=== PATIENT | male | born 1990 | race Caucasian/White ===

== ENCOUNTER 2025-02-20 10:54 | Outpatient (CLI) | payer BC, SELFPAY ==
--- NOTE | 2025-02-20 11:00 | CRLHL7_ITS ---
For Patients: As a result of the Century Cures Act, medical imaging exams and procedure reports are released immediately into your electronic medical record. You may view this report before your referring provider. If you have questions, please contact your health care provider. Indication: Lung cancer Technique: CT Chest/Abd/Pelvis W/86CC [id number] intravenous Please note that all CT scans at this facility use dose modulation, iterative reconstruction, and/or weight-based dosing when appropriate to reduce radiation dose to as low as reasonably achievable. Comparison: None Findings: In the chest, incidental residual thymic tissue noted in the anterior mediastinum. No thyroid nodule within the visualized thyroid. No axillary, hilar or mediastinal adenopathy. Postop changes right lobectomy. No infiltrate or edema. No effusion or pneumothorax. No suspicious pulmonary nodule. In the abdomen, there is no intrahepatic mass. Incidental fat deposition is present adjacent to the falciform ligament. Gallbladder is incompletely distended. No calcified gallstones or biliary obstruction. Normal spleen and pancreas. Adrenal glands and kidneys are normal. No retroperitoneal or mesenteric adenopathy. In the pelvis, the bladder is normal. Unremarkable prostate. No bowel obstruction, free air, free fluid or abscess. No pelvic or inguinal adenopathy. Normal appendix. Normal osseous structures. Impression: No evidence of metastatic disease. Please note that all CT scans at this facility use dose modulation, iterative reconstruction, and/or weight-based dosing when appropriate to reduce radiation dose to as low as reasonably achievable. Dictated by Juliano Alves MD @ 02/20/2025 3:53:28 PM (Electronically Signed)
== END 2025-02-20 10:55 | disposition home or self-care (01) ==
LOC: CT 10:55
PROVIDERS: PCP Family Medicine; Visit Provider Internal Medicine Hematology & Oncology
DX: C34.90 Malignant neoplasm of unspecified part of unspecified bronchus or lung (principal)
CPT/HCPCS: 71260; 74177; Q9967

== ENCOUNTER 2025-06-13 12:31 | Outpatient (CLI) | payer BC, SELFPAY ==
--- NOTE | 2025-06-13 13:00 | CRLHL7_ITS ---
For Patients: As a result of the Century Cures Act, medical imaging exams and procedure reports are released immediately into your electronic medical record. You may view this report before your referring provider. If you have questions, please contact your health care provider. Indication: Lung cancer Technique: CT Chest/Abd/Pelvis 85CC ISOVUE 370 intravenous contrast AND WATER PREP Please note that all CT scans at this facility use dose modulation, iterative reconstruction, and/or weight-based dosing when appropriate to reduce radiation dose to as low as reasonably achievable. Comparison: 02/20/2025 Findings: In the chest, stable postop changes to the right lung. Stable tiny perifissural nodule left lower lobe. No infiltrate or edema. No effusion or pneumothorax. No adenopathy. No fracture. In the abdomen/pelvis, the liver is within normal limits. Normal gallbladder, spleen, pancreas, adrenal glands and kidneys. No adenopathy. No bowel obstruction or free air. No excess pelvic free fluid or abscess. No pelvic mass. Bladder normal. No suspicious osseous lesion. Impression: Stable exam. No evidence of metastatic disease. Please note that all CT scans at this facility use dose modulation, iterative reconstruction, and/or weight-based dosing when appropriate to reduce radiation dose to as low as reasonably achievable. Dictated by Juliano Alves MD @ 06/13/2025 3:56:29 PM (Electronically Signed)
== END 2025-06-13 12:32 | disposition home or self-care (01) ==
LOC: CT 12:35
PROVIDERS: Visit Provider Internal Medicine Hematology & Oncology
DX: C34.90 Malignant neoplasm of unspecified part of unspecified bronchus or lung (principal)
CPT/HCPCS: 71260; 74177; Q9967

== ENCOUNTER 2025-06-20 11:00 | Outpatient (RCR) | payer BC, MEDICAID, SELFPAY ==
--- NOTE | 2024-12-13 09:20 | ONC.NURNOTE ---
Patient called to confirm appt on 12/27 at 11 am with a 10:30 am arrival.
--- NOTE | 2024-12-20 14:52 | ONC.NURNOTE ---
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
[2024-12-27 10:13] LABS: Hematocrit 38.6 % (37.0-53.0); Hemoglobin* 13.3 gm/dL (13.5-17.5); Immature Granulocytes Abs Auto 0.02 K/uL (0.00-0.30); Immature Granulocytes Pct Auto 0.4 %; Lymphocytes Absolute Auto 1.80 K/uL (0.90-2.90); Mean Corpuscular HGB Conc 35 gm/dL (32-36); Mean Corpuscular Hemoglobin 31 pg (26-34); Mean Corpuscular Volume 91 fL (80-100); RDW Coefficient of Variation % 12.7 % (11.5-15.5); Red Blood Count 4.26 m/uL (4.30-5.90); White Blood Count* 5.04 K/uL (4.50-11.00)
[2024-12-27 10:18] LABS: Slide Review Reflex No
[2024-12-27 10:30] LABS: Albumin* 4.7 g/dL (3.3-5.0); Chloride* 102 mmol/L (96-114); Potassium* 3.9 mmol/L (3.6-5.1); Sodium* 138 mmol/L (135-149)
[2024-12-27 10:32] LABS: Bilirubin Total* 0.9 mg/dL (0.1-1.5); Blood Urea Nitrogen* 12 mg/dL (5-24); Creatinine* 0.9 mg/dL (0.5-1.5); Estimated Glomerular Filt Rate 115 ml/min
[2024-12-27 10:33] LABS: Alanine Aminotransferase* 29 U/L (4-50); Alkaline Phosphatase* 54 U/L (40-150); Anion Gap 8 mEq/L (7-15); Aspartate Amino Transferase* 24 U/L (12-35); Calcium* 9.5 mg/dL (8.4-10.6); Carbon Dioxide* 28 mmol/L (20-32); Creatine Kinase* 99 U/L (54-186); Glucose* 90 mg/dL (60-115); Total Protein* 7.3 g/dL (6.0-8.3)
--- NOTE | 2024-12-27 15:13 | ONC.NURNOTE ---
Distress Screening = 7 fatigue, worry, sadness, loss of interest, finances, insurance SS consult to be placed
--- NOTE | 2024-12-27 15:15 | ONC.NURNOTE ---
transfer of care on alectinib folder given with information about medication, self care, after hours ph #, when to call clinic, managing fatigue and diet, safe handling patient had gained 20 # after thoracic surgery, and has lost 16 # intentionally, with plans to lose another 4# eating well, staying active questions addressed CHEY forms signed instructions for next steps reviewed- and written down diphenhydramine 25-50 mg QD at HS famotidine 10 mg BID chart picker the medrol dose amandeep and start today or tomorrow Yobani confirms understanding will follow up with Yobani at 1 week on his rash
--- NOTE | 2025-01-01 15:24 | ONC.NURNOTE ---
referral faxed to [facility] at [phone]
--- NOTE | 2025-01-02 09:29 | ONC.NURNOTE ---
Follow up call to Yobani regarding rash: Completed medrol dose pack yesterday taking Benadryl daily and pepci twice daily has noted no improvement in rash- Yobani states it appears to be more widespread Yobani asks if/when he can restart his alectinib? and next steps ?
--- NOTE | 2025-01-02 09:33 | ONC.NURNOTE ---
Referral for genetic counselor faxed to [facility] [place] with supporting documentation [phone] Yobani notified
--- NOTE | 2025-01-03 12:50 | ONC.NURNOTE ---
Addendum entered by Cheri Marvin RN 01/05/25 11:11: Punch biopsy completed at [facility] yesterday requested records to be faxed to Dr Jeffrey as available Original Note: Rash follow up:Reviewed current status with Dr Jeffrey and received the following orders Message left on Mems-ID -ok to restart alectinib as follows 2 tabs (2 X 150 mg) BID for 3-4 days 3 tabs BID for 3 days then after a week, resume full dose at 4 tabs BID although rash etiology is unknown- restarting alectinib may trigger a greater sensitivity and then worsening rash Referral placed for punch biopsy of rash- request for the next week-
--- NOTE | 2025-01-10 13:47 | ONC.NURNOTE ---
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
--- NOTE | 2025-01-25 11:42 | ONC.NURNOTE ---
Recommendation from Dr Jeffrey after speaking with infectious disease: Hold alectinib until antibiotic treatment is completed patient has follow up with Dr Jeffrey on Wednesday
--- NOTE | 2025-01-25 16:02 | ONC.NURNOTE ---
Yobani is traveling to [facility] in March for 2 plus months He will need an alectinib RX for January for 30 days Then he will need a 90 day supply for March, April, May #720- submitted to [facility] a PA for override of the 30 day supply will be needed [facility] will set up on covermymeds when 90 day RX is submitted this office will need to complete the PA
[2025-02-06 08:16] LABS: Hematocrit 41.8 % (37.0-53.0); Hemoglobin* 14.2 gm/dL (13.5-17.5); Immature Granulocytes Abs Auto 0.00 K/uL (0.00-0.30); Immature Granulocytes Pct Auto 0.0 %; Mean Corpuscular HGB Conc 34 gm/dL (32-36); Mean Corpuscular Hemoglobin 31 pg (26-34); Mean Corpuscular Volume 91 fL (80-100); RDW Coefficient of Variation % 11.4 % (11.5-15.5); Red Blood Count 4.60 m/uL (4.30-5.90); White Blood Count* 5.70 K/uL (4.50-11.00)
[2025-02-06 08:24] LABS: Lymphocytes Absolute Auto 3.20 K/uL (0.90-2.90)
[2025-02-06 08:25] LABS: Albumin* 4.7 g/dL (3.3-5.0); Chloride* 101 mmol/L (96-114); Slide Review Reflex No; Sodium* 137 mmol/L (135-149)
[2025-02-06 08:26] LABS: Potassium* 3.9 mmol/L (3.6-5.1)
[2025-02-06 08:28] LABS: Alanine Aminotransferase* 53 U/L (4-50); Alkaline Phosphatase* 52 U/L (40-150); Anion Gap 8 mEq/L (7-15); Aspartate Amino Transferase* 40 U/L (12-35); Bilirubin Total* 0.5 mg/dL (0.1-1.5); Blood Urea Nitrogen* 11 mg/dL (5-24); Calcium* 9.6 mg/dL (8.4-10.6); Carbon Dioxide* 28 mmol/L (20-32); Creatine Kinase* 77 U/L (54-186); Creatinine* 0.8 mg/dL (0.5-1.5); Est. Creatinine Clearance* 134.34; Estimated Glomerular Filt Rate 119 ml/min; Glucose* 90 mg/dL (60-115); Total Protein* 7.3 g/dL (6.0-8.3)
--- NOTE | 2025-02-06 09:02 | ONC.NURNOTE ---
Addendum entered by Ginny Jett RN 02/06/25 09:06: Also of note, pt will plan to re-start his oral chemo tonight. Original Note: Pt was present at [facility] this morning for labs. RN called pt later in the morning to check in regarding his oral chemo prescription. Because he will be traveling out of the country for several months, he had requested a 3 month supply of his drug. SOFIE Alonzochief clinical officer sent the script to his specialty pharmacy last week. Upon speaking with pt this morning, he shared that the pharmacy called about getting him his monthly supply per usual and he inquired about the 3 month supply. They confirmed that they received it but that it was processing. He agreed to be sent the one month supply for now but we discussed that follow up will be required for the 3 month supply. Yobani will call the pharmacy next week and RN will call to follow up. He plans to leave the country the 2nd or 3rd week of March.
--- NOTE | 2025-02-27 09:28 | ONC.NURNOTE ---
RX 90 day supply alensca resubmitted to [facility] by this inspector automatic typewriter previous 90 day supply sent [address] Jeffrey on 01/29/25 was dispensed as a 30 day supply on 02/05/25 so there are no further refills available to be sent to Yobani Bail Agent is speaking with [facility] once again requesting a travel override
--- NOTE | 2025-03-01 14:07 | ONC.NURNOTE ---
Message left on VM to call [facility]: -imaging results -status of 90 day supply [facility] -lab appt missed- need to reschedule -give printed lab orders to patient for lab draw in [facility] due April and May- (printed and in Navigator bin)
[2025-03-14 10:50] LABS: Albumin* 4.9 g/dL (3.3-5.0); Chloride* 99 mmol/L (96-114)
[2025-03-14 10:51] LABS: Hematocrit 43.1 % (37.0-53.0); Hemoglobin* 15.0 gm/dL (13.5-17.5); Immature Granulocytes Abs Auto 0.04 K/uL (0.00-0.30); Immature Granulocytes Pct Auto 0.7 %; Lymphocytes Absolute Auto 3.10 K/uL (0.90-2.90); Mean Corpuscular HGB Conc 35 gm/dL (32-36); Mean Corpuscular Hemoglobin 30 pg (26-34); Mean Corpuscular Volume 86 fL (80-100); Potassium* 3.9 mmol/L (3.6-5.1); RDW Coefficient of Variation % 11.3 % (11.5-15.5); Red Blood Count 5.00 m/uL (4.30-5.90); Sodium* 139 mmol/L (135-149); White Blood Count* 5.74 K/uL (4.50-11.00)
[2025-03-14 10:53] LABS: Alanine Aminotransferase* 42 U/L (4-50); Alkaline Phosphatase* 61 U/L (40-150); Anion Gap 9 mEq/L (7-15); Aspartate Amino Transferase* 39 U/L (12-35); Bilirubin Total* 0.8 mg/dL (0.1-1.5); Blood Urea Nitrogen* 13 mg/dL (5-24); Carbon Dioxide* 31 mmol/L (20-32); Creatinine* 1.0 mg/dL (0.5-1.5); Est. Creatinine Clearance* 107.47; Estimated Glomerular Filt Rate 101 ml/min
[2025-03-14 10:54] LABS: Calcium* 9.6 mg/dL (8.4-10.6); Creatine Kinase* 149 U/L (54-186); Glucose* 93 mg/dL (60-115); Total Protein* 7.7 g/dL (6.0-8.3)
[2025-03-14 11:10] LABS: Slide Review Reflex No
--- NOTE | 2025-03-14 15:03 | ONC.NURNOTE ---
[facility] has been slow to respond to filling Alecensa-RX continues to be in process regardless of expediting the process multiple lengthy calls to [facility] by this marketing copywriter and by the patient with insurance change- this marketing copywriter is looking to try a different specialty pharmacy all patients information faxed to [facility] today fax [phone] Yobani is aware of this plan
--- NOTE | 2025-04-20 11:58 | ONC.NURNOTE ---
Addendum entered by Cheri Marvin RN 04/23/25 10:24: KUSHAL for Alecensa 150 mg approved from 04/01/25-04/20/26 [id number] [facility] [phone] Original Note: KUSHAL submitted via covermymeds for alectinib Albert [id number]
--- NOTE | 2025-05-10 12:59 | ONC.NURNOTE ---
CK levels noted and improved- just over the normal range- reviewed by GROUND CREW LINES PERSON no dose modifications on Alectinib Yobani was instructed to stay off the creatine supplement next lab will include CBC CMP and CK to do 05/30/25 return date from pending
--- NOTE | 2025-05-11 12:50 | ONC.NURNOTE ---
next lab draw due end of May- orders emailed to Yobani- CBC CMP CK
--- NOTE | 2025-05-30 15:09 | ONC.NURNOTE ---
[facility] called to report they have not been able to get ahold of Yobani or his mother to schedule next delivery. Last delivery sent was 03/27/25 Yobani was emailed- he was able to get extra shipment of Alectinib prior to leaving the country and still has supply on hand. He will be back in [place] on 05/31. He is scheduled for lab on 06/01 and was instructed to call radiology scheduling to [facility]. Yobani will then need follow up with DR Jeffrey.
--- NOTE | 2025-05-30 15:36 | ONC.NURNOTE ---
Medical records and letter of treatment plan/prognosis emailed to Yobani per his written request. CHEY requested by health information, signed and submitted by Yobani. Yobani reports that he is trying to get a work visa for living in [facility]. Letter scanned into EMR.
[2025-06-11 09:55] LABS: Hematocrit 41.7 % (37.0-53.0); Hemoglobin* 14.3 gm/dL (13.5-17.5); Immature Granulocytes Abs Auto 0.01 K/uL (0.00-0.30); Immature Granulocytes Pct Auto 0.2 %; Mean Corpuscular HGB Conc 34 gm/dL (32-36); Mean Corpuscular Hemoglobin 31 pg (26-34); Mean Corpuscular Volume 90 fL (80-100); RDW Coefficient of Variation % 12.1 % (11.5-15.5); Red Blood Count 4.65 m/uL (4.30-5.90); White Blood Count* 5.64 K/uL (4.50-11.00)
[2025-06-11 09:56] LABS: Lymphocytes Absolute Auto 2.90 K/uL (0.90-2.90); Slide Review Reflex No
[2025-06-11 10:16] LABS: Albumin* 4.6 g/dL (3.3-5.0); Chloride* 103 mmol/L (96-114); Potassium* 3.9 mmol/L (3.6-5.1); Sodium* 137 mmol/L (135-149)
[2025-06-11 10:19] LABS: Alanine Aminotransferase* 30 U/L (4-50); Alkaline Phosphatase* 69 U/L (40-150); Anion Gap 7 mEq/L (7-15); Aspartate Amino Transferase* 33 U/L (12-35); Bilirubin Total* 0.6 mg/dL (0.1-1.5); Blood Urea Nitrogen* 13 mg/dL (5-24); Calcium* 9.7 mg/dL (8.4-10.6); Carbon Dioxide* 27 mmol/L (20-32); Creatine Kinase* 118 U/L (54-186); Creatinine* 0.9 mg/dL (0.5-1.5); Est. Creatinine Clearance* 118.29; Estimated Glomerular Filt Rate 114 ml/min; Glucose* 91 mg/dL (60-115); Total Protein* 7.5 g/dL (6.0-8.3)
--- NOTE | 2025-06-11 11:02 | ONC.NURNOTE ---
PA for imaging is pending will need to reschedule CT and RTC with provider once PA resolved Yobani has stopped his creatine supplement and CK levels are normal
== END 2025-06-25 23:59 | disposition home or self-care (01) ==
LOC: CCIC 11:00
PROVIDERS: Visit Provider Internal Medicine Hematology & Oncology
DX: C34.31 Malignant neoplasm of lower lobe, right bronchus or lung (principal)
CPT/HCPCS: 36415; 80053; 82550; 85025; 99202; 99205; 99214; 99215; G0463

== ENCOUNTER 2025-09-28 08:32 | Outpatient (CLI) | payer BC, SELFPAY ==
--- NOTE | 2025-09-28 09:00 | CRLHL7_ITS ---
For Patients: As a result of the Century Cures Act, medical imaging exams and procedure reports are released immediately into your electronic medical record. You may view this report before your referring provider. If you have questions, please contact your health care provider. INDICATION: Lung cancer, follow-up. TECHNIQUE: CT chest, abdomen, and pelvis acquired with 95 mL Isovue 370 IV contrast. COMPARISON: CT chest/abdomen/pelvis dated 06/13/2025. FINDINGS: CHEST: Lungs and pleura: Stable postsurgical changes following right lower lobectomy. No focal consolidation. No suspicious pulmonary nodule. Heart and vessels: No cardiomegaly, no pericardial effusion. Thyroid and lower neck: No suspicious thyroid nodule. Mediastinum/ern[place]: No lymphadenopathy. Trace residual thymic tissue versus rebound thymic hyperplasia in the anterior upper mediastinum, stable. Chest wall: No axillary lymphadenopathy. ABDOMEN/PELVIS: Liver: No suspicious focal hepatic lesion. Gallbladder and bile ducts: Unremarkable. Pancreas: Unremarkable. Spleen: Unremarkable. Adrenal glands: Unremarkable. Kidneys: Kidneys enhance symmetrically, without hydronephrosis. Too small to characterize hypodense bilateral renal lesions. Retroperitoneum: No lymphadenopathy. Bowel and mesentery: Bowel is not obstructed. No significant ascites. Mild prominence of several loops of jejunum and proximal ileum in the left upper quadrant of the abdomen, nonspecific, may reflect enteritis. Bladder: Unremarkable for degree of distention. Reproductive organs: No prostatomegaly. Pelvic lymph nodes: No lymphadenopathy. Vessels: Unremarkable. Abdominal wall: No acute abdominal wall abnormality. Bones: Multilevel degenerative changes of the spine. No suspicious/aggressive focal osseous lesion. IMPRESSION: 1. Stable postsurgical changes following right lower lobectomy, no evidence of local recurrence or metastatic disease. 2. Mild prominence of several loops of small bowel in the left upper quadrant of the abdomen, nonspecific, may reflect enteritis. Please note that all CT scans at this facility use dose modulation, iterative reconstruction, and/or weight-based dosing when appropriate to reduce radiation dose to as low as reasonably achievable. Dictated by Jorge L Gutierrez MD @ 09/28/2025 4:32:42 PM (Electronically Signed)
== END 2025-09-28 08:33 | disposition home or self-care (01) ==
LOC: CT 08:32
PROVIDERS: Visit Provider Internal Medicine Hematology & Oncology
DX: Z08 Encounter for follow-up examination after completed treatment for malignant neoplasm (principal); C34.90 Malignant neoplasm of unspecified part of unspecified bronchus or lung; Z90.2 Acquired absence of lung [part of]; K52.9 Noninfective gastroenteritis and colitis, unspecified; M51.369 Other intervertebral disc degeneration, lumbar region without mention of lumbar back pain or lower extremity pain; Z85.118 Personal history of other malignant neoplasm of bronchus and lung
CPT/HCPCS: 71260; 74177; Q9967